=== PATIENT | female | born 1950 | race Caucasian/White ===

== ENCOUNTER 2018-08-20 06:30 | Day surgery (SDC) | payer MEDICARE, MEDICAID ==
[2018-08-20] MEDS ORDERED: METOCLOPRAMIDE 10 MG INJ IV (08:00)
[2018-08-20] MEDS ORDERED: EPHEDrine SULFATE 50 MG/5 ML SYG IV (08:00)
[2018-08-20] MEDS ORDERED: ONDANSETRON 4 MG INJ IV (08:00)
[2018-08-20] MEDS ORDERED: LABETALOL HCL 20MG INJ IV (08:00)
[2018-08-20] MEDS ORDERED: hydrALAzine 20 MG INJ IV (08:00)
[2018-08-20] MEDS ORDERED: FENTAnyl 50 MCG/ML VIAL IV ×2 (08:00)
[2018-08-20] MEDS ORDERED: PROPOFOL 20 ML (08:24)
[2018-08-20] MEDS ORDERED: HYDROCORTISONE 100 MG INJ IV (09:00)
== END 2018-08-20 11:10 | disposition home or self-care (01) ==
LOC: GIL 06:30
DX: K29.30 Chronic superficial gastritis without bleeding (principal); K31.89 Other diseases of stomach and duodenum; E11.9 Type 2 diabetes mellitus without complications; E03.9 Hypothyroidism, unspecified; J45.909 Unspecified asthma, uncomplicated
CPT/HCPCS: 43239; 88305; 88312